=== PATIENT | male | born 2000 | race Caucasian/White ===

== ENCOUNTER 2022-11-04 13:38 | Outpatient (CLI) | payer OTHER, SELFPAY ==
--- NOTE | ~2022-11-04 | MR_ITS ---
EXAMINATION: MR pelvis wo con DATE: 11/04/2022 14:40 INDICATION: Osteitis pubis. Pelvic pain. Left hip pain. TECHNIQUE: Magnetic resonance imaging (MRI) of the pelvis was performed without intravenous contrast. COMPARISON: None. FINDINGS: Bone alignment is normal. No fracture. There is decreased femoral head/neck offset bilaterally, which may be seen with femoral acetabular impingement. The cartilage is normal in the hips. Mild osteitis pubis is noted. The hip adductor tendons are normal. The gluteal tendons are normal. There is mild te ndinopathy of the hamstring origins bilaterally. The musculature is normal. IMPRESSION: 1. Mild osteitis pubis. Reviewed, dictated and finalized at location A. IMPRESSION: 1. Mild osteitis pubis.
== END 2022-11-04 13:39 | disposition home or self-care (01) ==
LOC: ANHIMG 13:53
PROVIDERS: PCP Physician Assistant; Visit Provider Physician Assistant
DX: M86.9 Osteomyelitis, unspecified (principal)
CPT/HCPCS: 72195